=== PATIENT | female | born 1935 | race Caucasian/White ===

== ENCOUNTER 2017-08-10 06:16 | Inpatient (IN) ==
[2017-08-10] MEDS ORDERED: diphenhydrAMINE CAP 25 MG CAPSULE PO ONE (06:44)
[2017-08-10] MEDS ORDERED: ASPIRIN 325 MG TABLET PO ONE (06:44)
[2017-08-10] MEDS ORDERED: POTASSIUM CHLORIDE RIDER 10 MEQ in PREMIX 1 EACH IV PRN (06:44)
[2017-08-10] MEDS ORDERED: DIAZEPAM 5 MG TABLET PO ONE (06:44)
[2017-08-10] MEDS ORDERED: MAGNESIUM SULF RIDER 2 GM in PREMIX 1 EACH IV PRN (06:44)
[2017-08-10] MEDS ORDERED: DIAZEPAM 5 MG TABLET ONE (06:51)
[2017-08-10] MEDS ORDERED: ASPIRIN 325 MG TABLET ONE (06:51)
[2017-08-10] MEDS ORDERED: diphenhydrAMINE CAP 25 MG CAPSULE ONE (06:51)
[2017-08-10] MEDS ORDERED: HEPARIN/NACL 0.9% 2 UNITS/ML 1,000 ML IV ONE (06:59)
[2017-08-10] MEDS ORDERED: DEXTROSE 5% NACL 0.45% 1,000 ML IV SCH (07:00)
[2017-08-10] MEDS ORDERED: MIDAZOLAM 2 MG/2 ML VIAL ONE (07:53)
[2017-08-10] MEDS ORDERED: fentaNYL 100 MCG/2 ML VIAL ONE (07:54)
[2017-08-10] MEDS ORDERED: HEPARIN/NACL 0.9% 2 UNITS/ML 500 ML IV ONE (08:24)
[2017-08-10] MEDS ORDERED: HYDROmorphone 2 MG/1 ML VIAL ONE (08:28)
[2017-08-10] MEDS ORDERED: TIROFIBAN 5,000 MCG/100 ML PREMIX IV ONE (08:37)
[2017-08-10] MEDS ORDERED: ENOXAPARIN 60 MG/0.6 ML SYRINGE ONE (08:38)
[2017-08-10] MEDS ORDERED: CLOPIDOGREL 300 MG TABLET ONE (08:57)
[2017-08-10] MEDS ORDERED: TIROFIBAN 5,000 MCG/100 ML PREMIX IV SCH (09:00)
[2017-08-10] MEDS ORDERED: NITROGLYCERIN SL 0.4 MG TABLET SL PRN (09:26)
[2017-08-10] MEDS ORDERED: ONDANSETRON 4 MG/2 ML VIAL ONE (09:52)
[2017-08-10] MEDS ORDERED: ONDANSETRON 4 MG/2 ML VIAL IV ONE (09:55)
[2017-08-10] MEDS ORDERED: ALUM/MAG/SIMETH/LIDO VISC 1:1 30 ML BOTTLE PO ONE (09:55)
[2017-08-10] MEDS ORDERED: guaiFENesin/DM ER 600-30 MG TABLET PO PRN (14:42)
[2017-08-10] MEDS ORDERED: BISACODYL 5 MG TABLET PO PRN (14:42)
[2017-08-10] MEDS: DICYCLOMINE 10 MG CAPSULE PO SCH ×2 (15:34→21:04)
[2017-08-10] MEDS: ATORVASTATIN 40 MG TABLET PO SCH (21:04)
[2017-08-10] MEDS: traMADol 50 MG TABLET PO PRN (21:04)
[2017-08-10] MEDS: ZALEPLON 5 MG CAPSULE PO SCH (21:04)
[2017-08-10] MEDS: amLODIPine 5 MG TABLET PO SCH (23:19)
[2017-08-10] MEDS: NEBIVOLOL 10 MG TABLET PO SCH (23:19)
[2017-08-10] MEDS: hydroCHLOROthiazide 25 MG TABLET PO SCH (23:19)
[2017-08-11 05:06] LABS: Basophils % 0.3 % (0.0-0.8); Eosinophils # 0.1 10*3/uL (0.0-0.87); Eosinophils % 0.6 % (0.00-10.9); Hematocrit 35.1 VOL% (35.7-47.0); Hemoglobin 12.4 GM/DL (12.0-16.0); Immature Granulocytes % 0.3 %; Immature Granulocytes Absolute 0.03 #; Lymphocytes # 2.3 10*3/uL (1.4-4.0); Lymphocytes % 22.4 % (21.3-54.2); Mean Corpuscular HGB Conc 35.3 GM/DL (32-36); Mean Corpuscular Hemoglobin 31 PG (27-34); Mean Corpuscular Volume 88.9 FL (87-102); Mean Platelet Volume 9.5 FL (9.6-12.0); Monocytes # 1.1 10*3/uL (0.11-0.8); Monocytes % 10.9 % (1.7-12.7); Neutrophils # 6.8 10*3/uL (1.4-7.4); Neutrophils % 65.5 % (38.7-73.9); Platelet Count 223 T/CUMM (130-400); Red Blood Count 3.95 MC/CUMM (3.8-5.5); Red Cell Distribution Width 13.2 % (9.3-17.3); White Blood Count 10.4 T/CUMM (4-12)
[2017-08-11 05:33] LABS: Calcium 9.3 MG/DL (8.5-10.1); Osmolality,Calculated 281.4 MOS/KG (273-304); Potassium 4.1 MMOL/L (3.5-5.1)
[2017-08-11 05:36] LABS: Blood Urea Nitrogen 20 MG/DL (7-18); Calcium 9.3 MG/DL (8.5-10.1); Glucose 110 MG/DL (74-106); Osmolality,Calculated 280.5 MOS/KG (273-304); Potassium 4.1 MMOL/L (3.5-5.1); Sodium 139 MMOL/L (136-145)
[2017-08-11 05:38] LABS: Troponin I Only 0.196 NG/ML (0.00-0.045)
[2017-08-11] MEDS: DICYCLOMINE 10 MG CAPSULE PO SCH ×3 (08:58→20:59)
[2017-08-11] MEDS: hydroCHLOROthiazide 25 MG TABLET PO SCH (08:58)
[2017-08-11] MEDS: NEBIVOLOL 10 MG TABLET PO SCH (08:58)
[2017-08-11] MEDS: MONTELUKAST 10 MG TABLET PO SCH (08:58)
[2017-08-11] MEDS: CHOLECALCIFEROL 1,000 UNIT TABLET PO SCH (08:58)
[2017-08-11] MEDS: CLOPIDOGREL 75 MG TABLET PO SCH (08:58)
[2017-08-11] MEDS: ASPIRIN EC 81 MG TABLET PO SCH (08:58)
[2017-08-11] MEDS: FERROUS SULFATE 325 MG TABLET PO SCH (08:58)
[2017-08-11] MEDS: PANTOPRAZOLE 40 MG TABLET PO SCH (08:59)
[2017-08-11] MEDS: ESCITALOPRAM 10 MG TABLET PO SCH (08:59)
[2017-08-11] MEDS: POTASSIUM CHLORIDE 10 MEQ TABLET PO SCH (08:59)
[2017-08-11] MEDS: amLODIPine 5 MG TABLET PO SCH (08:59)
[2017-08-11] MEDS ORDERED: ASPIRIN EC 81 MG TABLET PO SCH (09:00)
[2017-08-11] MEDS: traMADol 50 MG TABLET PO PRN (09:07)
[2017-08-11] MEDS: ZALEPLON 5 MG CAPSULE PO SCH (20:59)
[2017-08-11] MEDS: ATORVASTATIN 40 MG TABLET PO SCH (20:59)
[2017-08-11] MEDS: ACETAMINOPHEN 325 MG TABLET PO PRN (21:01)
[2017-08-12 07:56] VITALS: BP 140/55
[2017-08-12] MEDS: hydroCHLOROthiazide 25 MG TABLET PO SCH (09:55)
[2017-08-12] MEDS: POTASSIUM CHLORIDE 10 MEQ TABLET PO SCH (09:55)
[2017-08-12] MEDS: FERROUS SULFATE 325 MG TABLET PO SCH (09:56)
[2017-08-12] MEDS: CLOPIDOGREL 75 MG TABLET PO SCH (09:56)
[2017-08-12] MEDS: ESCITALOPRAM 10 MG TABLET PO SCH (09:56)
[2017-08-12] MEDS: MONTELUKAST 10 MG TABLET PO SCH (09:56)
[2017-08-12] MEDS: DICYCLOMINE 10 MG CAPSULE PO SCH ×2 (09:56→14:30)
[2017-08-12] MEDS: amLODIPine 5 MG TABLET PO SCH (09:56)
[2017-08-12] MEDS: ASPIRIN EC 81 MG TABLET PO SCH (09:56)
[2017-08-12] MEDS: NEBIVOLOL 10 MG TABLET PO SCH (09:56)
[2017-08-12] MEDS: CHOLECALCIFEROL 1,000 UNIT TABLET PO SCH (09:56)
[2017-08-12] MEDS: PANTOPRAZOLE 40 MG TABLET PO SCH (09:56)
[2017-08-12] MEDS: traMADol 50 MG TABLET PO PRN (09:58)
[2017-08-12] MEDS: ACETAMINOPHEN 325 MG TABLET PO PRN (14:30)
== END 2017-08-12 16:15 | disposition home or self-care (01) | DRG 247 ==
LOC: N.CL 06:16 → N.TELEN 08:46
PROVIDERS: ADMIT Internal Medicine Interventional Cardiology; ATTEND Internal Medicine Interventional Cardiology
PROC: CLCCHCL (ICD-10-PCS; 2017-08-10 09:15)

== ENCOUNTER 2021-09-11 12:14 | Observation (INO) ==
[2021-09-11 12:48] LABS: Basophils % 0.4 % (0.0-0.8); Eosinophils # 0.1 10*3/uL (0.0-0.87); Hematocrit 35.6 VOL% (35.7-47.0); Hemoglobin 12.7 GM/DL (12.0-16.0); Immature Granulocytes % 0.4 %; Immature Granulocytes Absolute 0.03 #; Lymphocytes % 37.8 % (21.3-54.2); Mean Corpuscular HGB Conc 35.7 GM/DL (32-36); Mean Corpuscular Volume 85.4 FL (87-102); Mean Platelet Volume 9.2 FL (9.6-12.0); Monocytes # 0.8 10*3/uL (0.11-0.8); Neutrophils % 50.4 % (38.7-73.9); Platelet Count 242 T/CUMM (130-400); Red Blood Count 4.17 MC/CUMM (3.8-5.5); Red Cell Distribution Width 13.4 % (9.3-17.3); White Blood Count 7.8 T/CUMM (4-12)
[2021-09-11 13:18] LABS: Albumin 4.2 G/DL (3.4-5.0); Bilirubin,Total 0.6 MG/DL (0.20-1.00); Calcium 10.4 MG/DL (8.5-10.1); Potassium 3.2 MMOL/L (3.5-5.1); Total Protein 8.4 G/DL (6.4-8.2)
[2021-09-11 14:26] LABS: PT Patient Result 10.9 SECS (10.5-12.0); Partial Thromboplastin Time 28.2 SECS (23.8-32.1)
[2021-09-11] MEDS ORDERED: IPRATROPIUM 500 MCG/2.5 ML NEB RESP TX PRN (16:33)
[2021-09-11] MEDS ORDERED: MONTELUKAST 10 MG TABLET PO PRN (16:33)
[2021-09-11] MEDS ORDERED: ONDANSETRON 4 MG TABLET PO PRN (16:33)
[2021-09-11] MEDS ORDERED: NITROGLYCERIN SL 0.4 MG TABLET SL PRN (16:33)
[2021-09-11] MEDS ORDERED: ACETAMINOPHEN 325 MG TABLET PO PRN (16:33)
[2021-09-11] MEDS ORDERED: METHOCARBAMOL 500 MG TABLET PO PRN (16:33)
[2021-09-11] MEDS ORDERED: hydrALAZINE 20 MG/1 ML VIAL IV PRN (16:41)
[2021-09-11] MEDS: SUCRALFATE 1 GM TABLET PO SCH ×2 (17:41→21:51)
[2021-09-11] MEDS: amLODIPine 10 MG TABLET PO SCH (17:41)
[2021-09-11] MEDS: HEPARIN 5,000 UNIT/1 ML VIAL SUBCUT SCH (17:42)
[2021-09-11] MEDS ORDERED: traZODone 50 MG TABLET PO SCH (21:00)
[2021-09-11] MEDS ORDERED: ZALEPLON 5 MG CAPSULE PO SCH (21:00)
[2021-09-11] MEDS: DICYCLOMINE 10 MG CAPSULE PO SCH (21:52)
[2021-09-12] MEDS: HEPARIN 5,000 UNIT/1 ML VIAL SUBCUT SCH ×2 (04:52→17:37)
[2021-09-12 08:30] LABS: Basophils % 0.6 % (0.0-0.8); Eosinophils # 0.1 10*3/uL (0.0-0.87); Eosinophils % 2.2 % (0.00-10.9); Hematocrit 36.1 VOL% (35.7-47.0); Hemoglobin 12.6 GM/DL (12.0-16.0); Lymphocytes # 2.7 10*3/uL (1.4-4.0); Lymphocytes % 42.1 % (21.3-54.2); Mean Corpuscular HGB Conc 34.9 GM/DL (32-36); Mean Corpuscular Volume 86.8 FL (87-102); Mean Platelet Volume 9.3 FL (9.6-12.0); Monocytes # 0.8 10*3/uL (0.11-0.8); Monocytes % 11.7 % (1.7-12.7); Neutrophils % 43.2 % (38.7-73.9); Platelet Count 225 T/CUMM (130-400); Red Blood Count 4.16 MC/CUMM (3.8-5.5); Red Cell Distribution Width 13.3 % (9.3-17.3); White Blood Count 6.5 T/CUMM (4-12)
[2021-09-12 08:47] LABS: Calcium 10.5 MG/DL (8.5-10.1); Potassium 3.3 MMOL/L (3.5-5.1); Risk Ratio 6.22; VLDL Cholesterol 62.6 MG/DL
[2021-09-12] MEDS ORDERED: NEBIVOLOL 5 MG TABLET PO SCH (09:00)
[2021-09-12] MEDS ORDERED: amLODIPine 5 MG TABLET PO SCH (09:00)
[2021-09-12] MEDS ORDERED: ASPIRIN EC 81 MG TABLET PO SCH ×2 (09:00→21:00)
[2021-09-12] MEDS ORDERED: CETIRIZINE 10 MG TABLET PO SCH (09:00)
[2021-09-12] MEDS ORDERED: CLOPIDOGREL 75 MG TABLET PO SCH (09:00)
[2021-09-12] MEDS ORDERED: ATORVASTATIN 20 MG TABLET PO SCH (09:00)
[2021-09-12] MEDS ORDERED: FUROSEMIDE 40 MG TABLET PO SCH (09:00)
[2021-09-12] MEDS ORDERED: PANTOPRAZOLE 40 MG TABLET PO SCH (09:00)
[2021-09-12] MEDS ORDERED: DONEPEZIL 5 MG TABLET PO SCH (09:00)
[2021-09-12] MEDS: amLODIPine 10 MG TABLET PO SCH (09:45)
[2021-09-12] MEDS: DICYCLOMINE 10 MG CAPSULE PO SCH ×2 (09:46→14:48)
[2021-09-12] MEDS: SUCRALFATE 1 GM TABLET PO SCH ×3 (09:48→17:39)
[2021-09-12 14:10] VITALS: BP 116/58
[2021-09-12] MEDS ORDERED: POTASSIUM CHLORIDE 20 MEQ TABLET PO ONE (16:10)
[2021-09-13] MEDS ORDERED: NEBIVOLOL 10 MG TABLET PO SCH (09:00)
== END 2021-09-12 18:06 | disposition home or self-care (01) ==
LOC: N.ED 12:14 → N.EDINP 12:14 → N.TELEN 16:25
PROVIDERS: ADMIT Internal Medicine; ATTEND Internal Medicine

== ENCOUNTER 2021-12-02 01:49 | Inpatient (IN) ==
[2021-12-02] MEDS ORDERED: LORazepam 1 MG TABLET PO STA (02:03)
[2021-12-02] MEDS ORDERED: ONDANSETRON 4 MG/2 ML VIAL IV STA (02:03)
[2021-12-02] MEDS ORDERED: ALUM/MAG/SIMETH/LIDO VISC 1:1 30 ML BOTTLE PO STA (02:03)
[2021-12-02] MEDS ORDERED: ALUM/MAG/SIMETH/LIDO VISC 1:1 30 ML BOTTLE PO ONE (02:05)
[2021-12-02] MEDS ORDERED: LORazepam 1 MG TABLET ONE (02:06)
[2021-12-02] MEDS ORDERED: hydrALAZINE 20 MG/1 ML VIAL IV STA (02:08)
[2021-12-02 02:11] LABS: Basophils % 0.3 % (0.0-0.8); Eosinophils # 0.2 10*3/uL (0.0-0.87); Eosinophils % 1.7 % (0.00-10.9); Hematocrit 34.5 VOL% (35.7-47.0); Hemoglobin 11.9 GM/DL (12.0-16.0); Immature Granulocytes % 0.3 %; Immature Granulocytes Absolute 0.04 #; Lymphocytes # 4.1 10*3/uL (1.4-4.0); Lymphocytes % 32.8 % (21.3-54.2); Mean Corpuscular HGB Conc 34.5 GM/DL (32-36); Mean Platelet Volume 9.1 FL (9.6-12.0); Monocytes # 1.3 10*3/uL (0.11-0.8); Monocytes % 10.5 % (1.7-12.7); Neutrophils % 54.4 % (38.7-73.9); Platelet Count 258 T/CUMM (130-400); Red Blood Count 3.92 MC/CUMM (3.8-5.5); Red Cell Distribution Width 13.3 % (9.3-17.3); White Blood Count 12.5 T/CUMM (4-12)
[2021-12-02] MEDS ORDERED: methylPREDNISolone SOD SUC 125 MG/2 ML VIAL IV STA (02:21)
[2021-12-02 02:41] LABS: Albumin 4.2 G/DL (3.4-5.0); Bilirubin,Total 0.5 MG/DL (0.20-1.00); Calcium 10.2 MG/DL (8.5-10.1); Osmolality,Calculated 284.3 MOS/KG (273-304); Potassium 3.1 MMOL/L (3.5-5.1); Total Protein 7.8 G/DL (6.4-8.2)
[2021-12-02] MEDS ORDERED: POTASSIUM CHLORIDE 20 MEQ TABLET PO STA (02:50)
[2021-12-02] MEDS ORDERED: ONDANSETRON 4 MG/2 ML VIAL IV PRN (03:01)
[2021-12-02] MEDS ORDERED: hydrALAZINE 20 MG/1 ML VIAL IV PRN (03:01)
[2021-12-02] MEDS ORDERED: ACETAMINOPHEN 325 MG TABLET PO PRN ×2 (03:01→03:59)
[2021-12-02] MEDS ORDERED: SODIUM CHLORIDE 0.9% 1,000 ML IV SCH (03:30)
[2021-12-02 03:49] LABS: RBC,Urine 2 /HPF (0-4); Squamous Epithelial Cell,Urine Occasional /HPF (0-10)
[2021-12-02 03:50] LABS: Bilirubin,Urine Negative (Negative); Blood, Urine Trace mg/dL (Negative); Glucose,Urine (UA) Negative (Negative); Ketones,Urine Negative (Negative); Nitrite,Urine Negative (Negative); Protein,Urine Trace mg/dL (Negative); Urine Appearance Clear (Clear); Urine Color Yellow (Yellow); Urine Urobilinogen 0.2 eU/dL (<2.0)
[2021-12-02] MEDS ORDERED: CETIRIZINE 10 MG TABLET PO PRN (03:51)
[2021-12-02] MEDS ORDERED: MONTELUKAST 10 MG TABLET PO PRN (03:51)
[2021-12-02] MEDS ORDERED: METHOCARBAMOL 500 MG TABLET PO PRN (03:51)
[2021-12-02] MEDS ORDERED: HYDROCORTISONE 25 MG SUPP RECTAL PRN (03:51)
[2021-12-02] MEDS ORDERED: traMADol 50 MG TABLET PO PRN (03:51)
[2021-12-02] MEDS ORDERED: MELATONIN 3 MG TABLET PO PRN (04:01)
[2021-12-02] MEDS ORDERED: ALBUTEROL/IPRATROPIUM 3 ML NEB RESP TX SCH (07:00)
[2021-12-02] MEDS ORDERED: FUROSEMIDE 40 MG/4 ML VIAL IV ONE (07:37)
[2021-12-02] MEDS ORDERED: ALBUTEROL/IPRATROPIUM 3 ML NEB RESP TX PRN (07:39)
[2021-12-02 07:50] LABS: Basophils % 0.3 % (0.0-0.8); Eosinophils % 0.1 % (0.00-10.9); Hemoglobin 11.3 GM/DL (12.0-16.0); Immature Granulocytes % 0.7 %; Immature Granulocytes Absolute 0.08 #; Lymphocytes # 0.6 10*3/uL (1.4-4.0); Lymphocytes % 5.3 % (21.3-54.2); Mean Corpuscular HGB Conc 34.2 GM/DL (32-36); Mean Corpuscular Volume 87.5 FL (87-102); Mean Platelet Volume 9.1 FL (9.6-12.0); Monocytes # 0.1 10*3/uL (0.11-0.8); Monocytes % 1.2 % (1.7-12.7); Neutrophils % 92.4 % (38.7-73.9); Platelet Count 265 T/CUMM (130-400); Red Blood Count 3.77 MC/CUMM (3.8-5.5); Red Cell Distribution Width 13.4 % (9.3-17.3); White Blood Count 10.8 T/CUMM (4-12)
[2021-12-02 08:11] LABS: Bilirubin,Total 0.6 MG/DL (0.20-1.00); Calcium 10.3 MG/DL (8.5-10.1); Osmolality,Calculated 281.5 MOS/KG (273-304); Potassium 3.6 MMOL/L (3.5-5.1); Total Protein 8.1 G/DL (6.4-8.2)
[2021-12-02 08:13] LABS: Lymphocytes 4 % (20-55); Platelet Estimate Adequate; Total Cells Counted 100
[2021-12-02] MEDS ORDERED: ALBUTEROL 2.5 MG/3 ML NEB RESP TX ONE (08:17)
[2021-12-02] MEDS ORDERED: FUROSEMIDE 40 MG TABLET PO SCH (09:00)
[2021-12-02] MEDS ORDERED: ENOXAPARIN 40 MG/0.4 ML SYRINGE SUBCUT SCH (09:00)
[2021-12-02] MEDS: hydrALAZINE 25 MG TABLET PO SCH ×3 (09:16→20:21)
[2021-12-02] MEDS: DONEPEZIL 5 MG TABLET PO SCH (09:16)
[2021-12-02] MEDS: amLODIPine 5 MG TABLET PO SCH (09:17)
[2021-12-02] MEDS: POTASSIUM CHLORIDE 10 MEQ TABLET PO SCH ×2 (09:19→20:21)
[2021-12-02] MEDS: ATORVASTATIN 40 MG TABLET PO SCH (09:19)
[2021-12-02] MEDS: NEBIVOLOL 10 MG TABLET PO SCH (09:19)
[2021-12-02] MEDS: CLOPIDOGREL 75 MG TABLET PO SCH (09:19)
[2021-12-02] MEDS: PANTOPRAZOLE 40 MG TABLET PO SCH (09:19)
[2021-12-02] MEDS: DICYCLOMINE 10 MG CAPSULE PO SCH ×4 (09:19→20:21)
[2021-12-02] MEDS: hydroCHLOROthiazide 25 MG TABLET PO SCH ×2 (09:19→20:21)
[2021-12-02] MEDS: ASPIRIN EC 81 MG TABLET PO SCH (09:25)
[2021-12-02] MEDS: ENOXAPARIN 30 MG/0.3 ML SYRINGE SUBCUT SCH (09:25)
[2021-12-02] MEDS ORDERED: methylPREDNISolone SOD SUC 40 MG/1 ML VIAL IV SCH (11:00)
[2021-12-02] MEDS: ALBUTEROL/IPRATROPIUM 3 ML NEB RESP TX SCH ×2 (13:50→19:05)
[2021-12-02] MEDS: HydrOXYzine PAMOATE 25 MG CAPSULE PO PRN ×2 (15:30→22:31)
[2021-12-02] MEDS: ZALEPLON 5 MG CAPSULE PO SCH (20:21)
[2021-12-02] MEDS: MONTELUKAST 10 MG TABLET PO SCH (20:21)
[2021-12-02] MEDS ORDERED: traZODone 50 MG TABLET PO SCH (21:00)
[2021-12-03] MEDS: ALBUTEROL/IPRATROPIUM 3 ML NEB RESP TX SCH ×4 (00:10→18:50)
[2021-12-03 05:13] LABS: Basophils % 0.1 % (0.0-0.8); Hematocrit 33.6 VOL% (35.7-47.0); Hemoglobin 11.2 GM/DL (12.0-16.0); Immature Granulocytes % 0.6 %; Immature Granulocytes Absolute 0.06 #; Lymphocytes # 1.7 10*3/uL (1.4-4.0); Lymphocytes % 16.2 % (21.3-54.2); Mean Corpuscular HGB Conc 33.3 GM/DL (32-36); Mean Corpuscular Volume 90.6 FL (87-102); Mean Platelet Volume 9.6 FL (9.6-12.0); Monocytes # 1.3 10*3/uL (0.11-0.8); Monocytes % 11.6 % (1.7-12.7); Neutrophils % 71.5 % (38.7-73.9); Platelet Count 246 T/CUMM (130-400); Red Blood Count 3.71 MC/CUMM (3.8-5.5); Red Cell Distribution Width 13.6 % (9.3-17.3); White Blood Count 10.8 T/CUMM (4-12)
[2021-12-03 05:30] LABS: Calcium 10.5 MG/DL (8.5-10.1); Osmolality,Calculated 282.8 MOS/KG (273-304); Potassium 3.8 MMOL/L (3.5-5.1)
[2021-12-03 05:46] LABS: Phosphorous 3.8 MG/DL (2.5-4.9); Total Protein 7.9 G/DL (6.4-8.2)
[2021-12-03 06:45] LABS: Immunoglobulin A (Chem) 240 MG/DL (70-400); Immunoglobulin G (Chem) 1260 MG/DL (700-1600); Immunoglobulin M (Chem) 61 MG/DL (40-230); Total Protein (Chem) 7.8 G/DL (6.4-8.3)
[2021-12-03] MEDS: ENOXAPARIN 30 MG/0.3 ML SYRINGE SUBCUT SCH (09:19)
[2021-12-03] MEDS: NEBIVOLOL 10 MG TABLET PO SCH (09:19)
[2021-12-03] MEDS: POTASSIUM CHLORIDE 10 MEQ TABLET PO SCH ×2 (09:19→21:30)
[2021-12-03] MEDS: CLOPIDOGREL 75 MG TABLET PO SCH (09:20)
[2021-12-03] MEDS: ASPIRIN EC 81 MG TABLET PO SCH (09:20)
[2021-12-03] MEDS: amLODIPine 5 MG TABLET PO SCH (09:20)
[2021-12-03] MEDS: hydrALAZINE 25 MG TABLET PO SCH ×3 (09:20→21:32)
[2021-12-03] MEDS: ATORVASTATIN 40 MG TABLET PO SCH (09:20)
[2021-12-03] MEDS: hydroCHLOROthiazide 25 MG TABLET PO SCH ×2 (09:20→21:30)
[2021-12-03] MEDS: PANTOPRAZOLE 40 MG TABLET PO SCH (09:20)
[2021-12-03] MEDS: HydrOXYzine PAMOATE 25 MG CAPSULE PO PRN (09:20)
[2021-12-03] MEDS: DICYCLOMINE 10 MG CAPSULE PO SCH ×4 (09:20→21:31)
[2021-12-03] MEDS: DONEPEZIL 5 MG TABLET PO SCH (09:20)
[2021-12-03 10:09] LABS: Albumin (SPE) 4.7 G/DL (3.2-5.3); Albumin (SPE) Rel % 59.7 %; Alpha 1 (SPE) 0.2 G/DL (0.1-0.4); Alpha 1 (SPE) Rel % 2.3 %; Alpha 2 (SPE) 0.8 G/DL (0.4-1.0); Alpha 2 (SPE) Rel % 10.7 %; Beta (SPE) 0.8 G/DL (0.5-1.1); Beta (SPE) Rel % 10.3 %; Gamma (SPE) 1.3 G/DL (0.7-1.7)
[2021-12-03] MEDS ORDERED: traZODone 50 MG TABLET PO SCH (21:00)
[2021-12-03] MEDS: MONTELUKAST 10 MG TABLET PO SCH (21:30)
[2021-12-03] MEDS: ZALEPLON 5 MG CAPSULE PO SCH (21:30)
[2021-12-04] MEDS: ALBUTEROL/IPRATROPIUM 3 ML NEB RESP TX SCH ×3 (01:14→14:36)
[2021-12-04 06:16] LABS: Basophils # 0.1 10*3/uL (0.0-0.2); Basophils % 0.5 % (0.0-0.8); Eosinophils # 0.2 10*3/uL (0.0-0.87); Hematocrit 33.3 VOL% (35.7-47.0); Hemoglobin 11.2 GM/DL (12.0-16.0); Immature Granulocytes % 0.3 %; Immature Granulocytes Absolute 0.03 #; Lymphocytes # 3.1 10*3/uL (1.4-4.0); Mean Corpuscular HGB Conc 33.6 GM/DL (32-36); Mean Corpuscular Volume 90.5 FL (87-102); Mean Platelet Volume 9.6 FL (9.6-12.0); Monocytes # 1.1 10*3/uL (0.11-0.8); Neutrophils % 54.2 % (38.7-73.9); Platelet Count 235 T/CUMM (130-400); Red Blood Count 3.68 MC/CUMM (3.8-5.5); Red Cell Distribution Width 13.7 % (9.3-17.3); White Blood Count 9.5 T/CUMM (4-12)
[2021-12-04 06:30] LABS: Calcium 10.4 MG/DL (8.5-10.1); Osmolality,Calculated 290.4 MOS/KG (273-304); Potassium 3.9 MMOL/L (3.5-5.1)
[2021-12-04 06:44] LABS: Random Urine Protein (Bench) 11 MG/DL (<11.9)
[2021-12-04] MEDS: ATORVASTATIN 40 MG TABLET PO SCH (09:16)
[2021-12-04] MEDS: ENOXAPARIN 30 MG/0.3 ML SYRINGE SUBCUT SCH (09:16)
[2021-12-04] MEDS: PANTOPRAZOLE 40 MG TABLET PO SCH (09:16)
[2021-12-04] MEDS: hydroCHLOROthiazide 25 MG TABLET PO SCH (09:16)
[2021-12-04] MEDS: ASPIRIN EC 81 MG TABLET PO SCH (09:16)
[2021-12-04] MEDS: DONEPEZIL 5 MG TABLET PO SCH (09:16)
[2021-12-04] MEDS: NEBIVOLOL 10 MG TABLET PO SCH (09:16)
[2021-12-04] MEDS: hydrALAZINE 25 MG TABLET PO SCH ×2 (09:16→14:27)
[2021-12-04] MEDS: CLOPIDOGREL 75 MG TABLET PO SCH (09:16)
[2021-12-04] MEDS: DICYCLOMINE 10 MG CAPSULE PO SCH ×3 (09:16→17:13)
[2021-12-04] MEDS: POTASSIUM CHLORIDE 10 MEQ TABLET PO SCH (09:16)
[2021-12-04] MEDS: amLODIPine 5 MG TABLET PO SCH (09:17)
[2021-12-04 15:46] VITALS: BP 145/37
[2021-12-04 16:21] LABS: Kappa Free Light Chain 2.19 mg/dL; Lambda Free Light Chain 1.63 mg/dL
== END 2021-12-04 17:18 | disposition home health service (06) | DRG 885 ==
LOC: EDBD → EDUNIT# → N.EDINP 01:49 → N.ED 01:49 → N.3E 04:49 → SUATTDRO 08:28
PROVIDERS: ADMIT Internal Medicine; ATTEND Internal Medicine

== ENCOUNTER 2021-12-06 12:12 | Inpatient (IN) ==
[2021-12-06 14:13] LABS: Basophils % 0.3 % (0.0-0.8); Eosinophils # 0.1 10*3/uL (0.0-0.87); Eosinophils % 0.6 % (0.00-10.9); Hematocrit 32.7 VOL% (35.7-47.0); Hemoglobin 11.4 GM/DL (12.0-16.0); Immature Granulocytes % 0.3 %; Immature Granulocytes Absolute 0.03 #; Lymphocytes # 1.3 10*3/uL (1.4-4.0); Lymphocytes % 13.4 % (21.3-54.2); Mean Corpuscular HGB Conc 34.9 GM/DL (32-36); Mean Corpuscular Volume 87.2 FL (87-102); Mean Platelet Volume 9.3 FL (9.6-12.0); Monocytes # 0.9 10*3/uL (0.11-0.8); Monocytes % 9.2 % (1.7-12.7); Neutrophils % 76.2 % (38.7-73.9); Platelet Count 232 T/CUMM (130-400); Red Blood Count 3.75 MC/CUMM (3.8-5.5); Red Cell Distribution Width 13.2 % (9.3-17.3); White Blood Count 9.8 T/CUMM (4-12)
[2021-12-06 14:27] LABS: Osmolality,Calculated 286.4 MOS/KG (273-304); Potassium 3.3 MMOL/L (3.5-5.1)
[2021-12-06] MEDS ORDERED: GLUCAGON 1 MG VIAL IM PRN (16:08)
[2021-12-06] MEDS ORDERED: ONDANSETRON 4 MG/2 ML VIAL IV PRN (16:08)
[2021-12-06] MEDS ORDERED: DEXTROSE 10% 250 ML BAG IV PRN (16:08)
[2021-12-06] MEDS ORDERED: HYDROCORTISONE 25 MG SUPP RECTAL PRN (16:11)
[2021-12-06] MEDS ORDERED: MONTELUKAST 10 MG TABLET PO PRN (16:11)
[2021-12-06] MEDS ORDERED: POTASSIUM CHLORIDE 20 MEQ TABLET PO STA (16:31)
[2021-12-06] MEDS: NEBIVOLOL 10 MG TABLET PO SCH (17:09)
[2021-12-06] MEDS: ENOXAPARIN 30 MG/0.3 ML SYRINGE SUBCUT SCH (17:09)
[2021-12-06] MEDS: CLOPIDOGREL 75 MG TABLET PO SCH (17:10)
[2021-12-06] MEDS: FUROSEMIDE 40 MG TABLET PO SCH (17:10)
[2021-12-06] MEDS: amLODIPine 10 MG TABLET PO SCH (17:10)
[2021-12-06] MEDS: LACTATED RINGERS 1,000 ML IV SCH (17:11)
[2021-12-06] MEDS: ACETAMINOPHEN 325 MG TABLET PO PRN (18:02)
[2021-12-06] MEDS ORDERED: POTASSIUM CHLORIDE 20 MEQ TABLET PO ONE (20:30)
[2021-12-06] MEDS: traZODone 50 MG TABLET PO SCH (20:43)
[2021-12-06] MEDS: ATORVASTATIN 40 MG TABLET PO SCH (20:43)
[2021-12-06] MEDS: SIMETHICONE CHEW 80 MG TABLET PO PRN (20:43)
[2021-12-06] MEDS: diphenhydrAMINE CAP 25 MG CAPSULE PO PRN (23:00)
[2021-12-07] MEDS ORDERED: POTASSIUM CHLORIDE 20 MEQ TABLET PO ONE
[2021-12-07] MEDS ORDERED: MORPHINE 2 MG/1 ML SYRINGE IV ONE (01:30)
[2021-12-07] MEDS: ACETAMINOPHEN 325 MG TABLET PO PRN ×2 (03:22→23:02)
[2021-12-07 03:34] LABS: Urine Appearance Clear (Clear); Urine Color Yellow (Yellow); Urine pH 5.5 (4.5-8.0)
[2021-12-07 03:35] LABS: Bilirubin,Urine Negative (Negative); Blood, Urine Negative (Negative); Glucose,Urine (UA) Negative (Negative); Ketones,Urine Negative (Negative); Nitrite,Urine Negative (Negative); Protein,Urine Negative (Negative); Urine Specific Gravity <= 1.005 (1.001-1.035); Urine Urobilinogen 0.2 eU/dL (<2.0)
[2021-12-07 03:41] LABS: Bacteria,Urine Occasional /HPF (Few); Hyaline Casts,Urine 5 /LPF (0-3); Mucus,Urine Occasional /LPF (Occasional); RBC,Urine 2 /HPF (0-4); Squamous Epithelial Cell,Urine Occasional /HPF (0-10); Transitional Epi Cells,Urine Occasional /HPF (<1)
[2021-12-07 05:26] LABS: Basophils % 0.3 % (0.0-0.8); Eosinophils # 0.2 10*3/uL (0.0-0.87); Eosinophils % 2.2 % (0.00-10.9); Hematocrit 30.9 VOL% (35.7-47.0); Hemoglobin 10.3 GM/DL (12.0-16.0); Immature Granulocytes % 0.3 %; Immature Granulocytes Absolute 0.03 #; Lymphocytes # 2.2 10*3/uL (1.4-4.0); Lymphocytes % 21.3 % (21.3-54.2); Mean Corpuscular HGB Conc 33.3 GM/DL (32-36); Mean Corpuscular Volume 91.4 FL (87-102); Mean Platelet Volume 9.8 FL (9.6-12.0); Monocytes # 1.3 10*3/uL (0.11-0.8); Monocytes % 12.8 % (1.7-12.7); Neutrophils % 63.1 % (38.7-73.9); Platelet Count 237 T/CUMM (130-400); Red Blood Count 3.38 MC/CUMM (3.8-5.5); Red Cell Distribution Width 13.2 % (9.3-17.3); White Blood Count 10.1 T/CUMM (4-12)
[2021-12-07 05:52] LABS: Calcium 9.4 MG/DL (8.5-10.1); Osmolality,Calculated 278.8 MOS/KG (273-304); Potassium 4.5 MMOL/L (3.5-5.1)
[2021-12-07] MEDS: CLOPIDOGREL 75 MG TABLET PO SCH (08:36)
[2021-12-07] MEDS: DONEPEZIL 5 MG TABLET PO SCH (08:36)
[2021-12-07] MEDS: PANTOPRAZOLE 40 MG TABLET PO SCH (08:37)
[2021-12-07] MEDS: ASPIRIN EC 81 MG TABLET PO SCH (08:37)
[2021-12-07] MEDS: SIMETHICONE CHEW 80 MG TABLET PO PRN (08:37)
[2021-12-07] MEDS: amLODIPine 10 MG TABLET PO SCH (09:50)
[2021-12-07] MEDS: NEBIVOLOL 10 MG TABLET PO SCH (09:54)
[2021-12-07] MEDS: FUROSEMIDE 40 MG TABLET PO SCH (09:54)
[2021-12-07] MEDS: SIMETHICONE CHEW 125 MG TABLET PO PRN (11:52)
[2021-12-07] MEDS: LACTATED RINGERS 1,000 ML IV SCH ×2 (16:29→23:02)
[2021-12-07] MEDS: ENOXAPARIN 30 MG/0.3 ML SYRINGE SUBCUT SCH (16:35)
[2021-12-07] MEDS: diphenhydrAMINE CAP 25 MG CAPSULE PO PRN (21:54)
[2021-12-07] MEDS: traZODone 50 MG TABLET PO SCH (21:54)
[2021-12-07] MEDS: ATORVASTATIN 40 MG TABLET PO SCH (21:54)
[2021-12-08 05:02] LABS: Basophils % 0.3 % (0.0-0.8); Eosinophils # 0.3 10*3/uL (0.0-0.87); Eosinophils % 3.3 % (0.00-10.9); Hematocrit 30.5 VOL% (35.7-47.0); Hemoglobin 10.5 GM/DL (12.0-16.0); Immature Granulocytes % 0.4 %; Immature Granulocytes Absolute 0.04 #; Lymphocytes # 3.1 10*3/uL (1.4-4.0); Lymphocytes % 32.7 % (21.3-54.2); Mean Corpuscular HGB Conc 34.4 GM/DL (32-36); Mean Corpuscular Volume 89.2 FL (87-102); Mean Platelet Volume 9.4 FL (9.6-12.0); Monocytes # 1.1 10*3/uL (0.11-0.8); Monocytes % 11.4 % (1.7-12.7); Neutrophils % 51.9 % (38.7-73.9); Platelet Count 247 T/CUMM (130-400); Red Blood Count 3.42 MC/CUMM (3.8-5.5); Red Cell Distribution Width 13.2 % (9.3-17.3); White Blood Count 9.4 T/CUMM (4-12)
[2021-12-08 05:21] LABS: Calcium 9.6 MG/DL (8.5-10.1); Osmolality,Calculated 276.8 MOS/KG (273-304); Osmolality,Calculated 279.7 MOS/KG (273-304); Potassium 3.8 MMOL/L (3.5-5.1); Potassium 4.1 MMOL/L (3.5-5.1)
[2021-12-08] MEDS: SIMETHICONE CHEW 125 MG TABLET PO PRN ×2 (08:02→21:55)
[2021-12-08] MEDS: FUROSEMIDE 40 MG TABLET PO SCH (08:03)
[2021-12-08] MEDS: ASPIRIN EC 81 MG TABLET PO SCH (08:03)
[2021-12-08] MEDS: DONEPEZIL 5 MG TABLET PO SCH (08:03)
[2021-12-08] MEDS: CLOPIDOGREL 75 MG TABLET PO SCH (08:03)
[2021-12-08] MEDS: NEBIVOLOL 10 MG TABLET PO SCH (08:03)
[2021-12-08] MEDS: PANTOPRAZOLE 40 MG TABLET PO SCH (08:03)
[2021-12-08] MEDS: ENOXAPARIN 30 MG/0.3 ML SYRINGE SUBCUT SCH (16:05)
[2021-12-08] MEDS: LACTATED RINGERS 1,000 ML IV SCH (17:39)
[2021-12-08] MEDS: traZODone 50 MG TABLET PO SCH (21:55)
[2021-12-08] MEDS: diphenhydrAMINE CAP 25 MG CAPSULE PO PRN (21:55)
[2021-12-08] MEDS: ATORVASTATIN 40 MG TABLET PO SCH (21:56)
[2021-12-09] MEDS: ACETAMINOPHEN 325 MG TABLET PO PRN (01:23)
[2021-12-09 05:19] LABS: Calcium 9.6 MG/DL (8.5-10.1); Osmolality,Calculated 284.4 MOS/KG (273-304); Potassium 3.9 MMOL/L (3.5-5.1)
[2021-12-09 05:27] LABS: Basophils % 0.4 % (0.0-0.8); Eosinophils # 0.3 10*3/uL (0.0-0.87); Hematocrit 28.6 VOL% (35.7-47.0); Hemoglobin 9.6 GM/DL (12.0-16.0); Immature Granulocytes % 0.2 %; Immature Granulocytes Absolute 0.02 #; Lymphocytes # 3.1 10*3/uL (1.4-4.0); Lymphocytes % 37.8 % (21.3-54.2); Mean Corpuscular HGB Conc 33.6 GM/DL (32-36); Mean Corpuscular Volume 91.1 FL (87-102); Mean Platelet Volume 9.5 FL (9.6-12.0); Monocytes # 1.1 10*3/uL (0.11-0.8); Monocytes % 13.5 % (1.7-12.7); Neutrophils % 44.1 % (38.7-73.9); Platelet Count 223 T/CUMM (130-400); Red Blood Count 3.14 MC/CUMM (3.8-5.5); Red Cell Distribution Width 13.2 % (9.3-17.3); White Blood Count 8.2 T/CUMM (4-12)
[2021-12-09] MEDS: NEBIVOLOL 10 MG TABLET PO SCH (09:15)
[2021-12-09] MEDS: FUROSEMIDE 40 MG TABLET PO SCH (09:15)
[2021-12-09] MEDS: ASPIRIN EC 81 MG TABLET PO SCH (09:15)
[2021-12-09] MEDS: CLOPIDOGREL 75 MG TABLET PO SCH (09:15)
[2021-12-09] MEDS: DONEPEZIL 5 MG TABLET PO SCH (09:15)
[2021-12-09] MEDS: PANTOPRAZOLE 40 MG TABLET PO SCH (09:16)
[2021-12-09] MEDS ORDERED: MAGNESIUM HYDROXIDE SUSP 30 ML UDCUP PO PRN (14:45)
[2021-12-09] MEDS: ENOXAPARIN 30 MG/0.3 ML SYRINGE SUBCUT SCH (16:09)
[2021-12-09] MEDS: LACTATED RINGERS 1,000 ML IV SCH (16:43)
[2021-12-09] MEDS: ATORVASTATIN 40 MG TABLET PO SCH (20:23)
[2021-12-09] MEDS: traZODone 50 MG TABLET PO SCH (20:23)
[2021-12-10] MEDS: DONEPEZIL 5 MG TABLET PO SCH (09:15)
[2021-12-10] MEDS: PANTOPRAZOLE 40 MG TABLET PO SCH (09:15)
[2021-12-10] MEDS: ASPIRIN EC 81 MG TABLET PO SCH (09:15)
[2021-12-10] MEDS: CLOPIDOGREL 75 MG TABLET PO SCH (09:15)
[2021-12-10] MEDS: NEBIVOLOL 10 MG TABLET PO SCH (09:16)
[2021-12-10] MEDS: FUROSEMIDE 40 MG TABLET PO SCH (09:19)
[2021-12-10] MEDS: ENOXAPARIN 30 MG/0.3 ML SYRINGE SUBCUT SCH (17:21)
[2021-12-10 20:17] VITALS: BP 109/65
== END 2021-12-10 19:22 | DRG 307 ==
LOC: N.ED 12:12 → N.EDINP 16:08 → N.3E 16:59
PROVIDERS: ADMIT Internal Medicine; ATTEND Internal Medicine